=== PATIENT | female | born 1975 | race Caucasian/White ===

== ENCOUNTER 2016-06-06 09:27 | Emergency (ER) | payer SELFPAY ==
[2016-06-06 09:34] VITALS: BMI 39.0
[2016-06-06 09:36] VITALS: RESP 20
[2016-06-06] MEDS ORDERED: Lidocaine 1% Inj (20ml) ONE (10:30)
--- NOTE | 2016-06-06 10:47 | ED PDOC ---
Lower Extremity Pain/Injury Time Seen by Provider: 06/06/16 09:35 Chief Complaint (Nursing): Lower Extremity Problem/Injury History Per: Patient History/Exam Limitations: no limitations Onset/Duration Of Symptoms: Days Current Symptoms Are (Timing): Still Present Additional Complaint(s): 41-year-old female, PMHx includes Diabetes and Asthma, presents to the emergency department with complaints of pain and swelling to the first digit of her left foot, that she developed after getting a pedicure a few days ago. Pain gradually worsened, resulting in her coming to the ED for evaluation. Denies nausea/vomiting, fevers, discharge from area, blood, or any other associated symptoms. No other complaints at this time. Past Medical History Reviewed: Historical Data, Nursing Documentation, Vital Signs Vital Signs: Last Vital Signs Temp 98 F 06/06/16 09:34 Pulse 76 06/06/16 09:34 Resp 20 06/06/16 09:34 BP 122/75 06/06/16 09:34 Pulse Ox 100 06/06/16 09:34 - Medical History PMH: Asthma, Diabetes - Surgical History Surgical History: Cholecystectomy - Family History Family History: States: Unknown Family Hx, Diabetes - Social History Current smoker - smoking cessation education provided: No Alcohol: None Drugs: Denies - Home Medications Home Medications: Ambulatory Orders Medication Instructions Recorded metFORMIN [glucOPHAGE] 1 tab PO DAILY 05/22/16 Cephalexin [Keflex] 500 mg PO QID #28 capsule 06/06/16 - Allergies Allergies/Adverse Reactions: Allergies Allergy/AdvReac Type Severity Reaction Status Date / Time No Known Allergies Allergy Verified 05/18/16 09:06 Review of Systems ROS Statement: Except As Marked, All Systems Reviewed And Found Negative Constitutional: Negative for: Fever Gastrointestinal: Negative for: Nausea, Vomiting Musculoskeletal: Positive for: Foot Pain (left first toe ingrown nail) Skin: Negative for: Rash Physical Exam - Reviewed Nursing Documentation Reviewed: Yes Vital Signs Reviewed: Yes - Physical Exam Appears: Positive for: Non-toxic, No Acute Distress Skin: Positive for: Warm, Dry Eye Exam: Positive for: Normal appearance Neck: Positive for: Painless ROM Respiratory: Negative for: Accessory Muscle Use, Respiratory Distress Extremity: Positive for: Normal ROM, Tenderness (Left lower Ext: swelling and tenderness to palpation of medial aspect of left great toe. (+) fluctuance. appears to be consistent with ingrown toenail) Neurologic/Psych: Positive for: Alert, Oriented - ECG O2 Sat by Pulse Oximetry: 100 Medical Decision Making Medical Decision Making: Impression: Onychocryptosis Plan: * Ibuprofen * Podiatry consult * Reassess and Disposition 1135 Podiatry resident performed nail avulsion procedure, recommends to discharge patient with Rx for Antibx and outpatient f/u with podiatry. Pt agreeable with plan. All questions answred Scribe Attestation: Documented by Donnie Garcia acting as a scribe for Jim Harden MD. Provider Attestation: All medical record entries made by the Scribe were at my direction and personally dictated by me. I have reviewed the chart and agree that the record accurately reflects my personal performance of the history, physical exam, medical decision making, and the department course for this patient. I have also personally directed, reviewed, and agree with the discharge instructions and disposition. Disposition - Clinical Impression Clinical Impression: Nail avulsion, toe - Patient ED Disposition Is Patient to be Admitted: No Counseled Patient/Family Regarding: Studies Performed, Diagnosis, Need For Followup - Disposition Referrals: Podiatry Clinic [Outside] FAMILY PROVIDER,NO [Primary Care Provider] - Disposition: Routine/Home Disposition Time: 11:00 Condition: GOOD Additional Instructions: follow up in podiatry clinic on Monday. return to the ED with any worsening or concerning symptoms. Prescriptions: Cephalexin [Keflex] 500 mg PO QID #28 capsule Instructions: Nail Avulsion (ED) Print Language: FINNISH
[2016-06-06] MEDS ORDERED: Lidocaine 1% Inj (20ml) IJ ONE (11:38)
[2016-06-06 11:45] VITALS: BP 120/78; PULSE 78; TEMP 97.6
--- NOTE | 2016-06-06 14:56 | CP.PCM.CON ---
History of Present Illness - History of Present Illness History of Present Illness: 41 year old female patient with PMHx of DM and Asthma was seen at bedside this morning after request for podiatry consult. Patient presents with Right hallux infection secondary to ingrown toenail. Patient states that she first noticed pain and swelling 4 weeks ago from today. She stats that the swelling started after a visit to [facility]. Patient states that she has tried OTC medications for the inflammation which helped a little bit. Patient states that she has a lot of pain today and wishes to have Nail Avulsion done. Patient denies of any N /V/F/C or SOB today. Past Patient History - Past Medical History & Family History Past Medical History?: Yes - Past Social History Smoking Status: Never Smoked - CARDIAC Hx Hypertension: No - PULMONARY Hx Asthma: Yes - ENDOCRINE/METABOLIC Hx Diabetes Mellitus Type 2: Yes (diagnosed 2 weeks ago) Other/Comment: Not taking any diabetic medication - PSYCHIATRIC Hx Substance Use: No - SURGICAL HISTORY Hx Cholecystectomy: Yes - ANESTHESIA Hx Anesthesia: Yes Hx Anesthesia Reactions: No Meds Home Medications: Home Medication List Medication Instructions Recorded Confirmed Type Cephalexin [Keflex] 500 mg PO QID #28 capsule 06/06/16 Rx Allergies/Adverse Reactions: Allergies Allergy/AdvReac Type Severity Reaction Status Date / Time No Known Allergies Allergy Verified 05/18/16 09:06 Physical Exam - Constitutional Appears: Well, Non-toxic, No Acute Distress - Extremities Exam Additional comments: Bilateral lower extremity exam DERM: Erythema, slight purulent drainage noted to medial border of Right hallux nail border consistent with Paronychia. No mal-odor is noted. Erythema is localized to distal hallux and medial aspect. 1/5 of the medial border of the hallux was already cut off at the time of evaluation. VASC: Moderate swelling noted to medial aspect of Right hallux nail border noted. Palpable DP and PT noted 2/4 bilaterally. [employer] less than 3 seconds noted to all digits ORTHO: Pain on palpation to Right hallux, especially medial border. Decreased ROM to 1st MPJ and distal joints due to guarding NEURO: Gross sensation intact - Neurological Exam Neurological exam: Alert, Oriented x3 - Psychiatric Exam Psychiatric exam: Normal Affect, Normal Mood - Skin Skin Exam: Normal Color, Warm Results - Vital Signs Recent Vital Signs: Last Vital Signs Temp 97.6 F 06/06/16 11:44 Pulse 78 06/06/16 11:44 Resp 20 06/06/16 11:44 BP 120/78 06/06/16 11:44 Pulse Ox 98 06/06/16 11:44 Assessment & Plan - Assessment and Plan (Free Text) Assessment: 41 year old female patient with Right hallux Paronychia Plan: Patient was seen, evaluated and treated at bedside this morning labs and vitals reviewed discussed with attending Dr. Conner Verbal consent was obtained from the patient for the PNA procedure. 4cc of 1% Lidocaine plain was injected to right hallux. In sterile manner with sterile nail kit, Partial Nail Avulsion was done to medial 1/3 of the right hallux nail. Approximately 5mm x 4mm piece of nail was removed from the medial aspect of the right hallux nail. It appears someone tried to cut the medial border of nail, but left the piece inside. Patient tolerated the procedure well. Right hallux dressed with Bacitracin, DSD Patient to follow up with Podiatry clinic in 1 week Dressing instruction was well explained to the patient.
[2016-06-06 17:30] VITALS: O2SAT 100
== END 2016-06-06 11:45 | disposition home or self-care (01) ==
LOC: H.ER 09:27
DX: S91.209A Unspecified open wound of unspecified toe(s) with damage to nail, initial encounter (principal); W22.8XXA Striking against or struck by other objects, initial encounter; Y92.89 Other specified places as the place of occurrence of the external cause; E11.9 Type 2 diabetes mellitus without complications; Z79.84 Long term (current) use of oral hypoglycemic drugs

== ENCOUNTER 2017-12-08 20:45 | Emergency (ER) | payer SELFPAY ==
[2017-12-08 20:45] VITALS: BMI 39.0
[2017-12-08 20:58] VITALS: BP 116/75; PULSE 82; RESP 18; TEMP 98.7; O2SAT 98
--- NOTE | 2017-12-08 21:59 | ED PDOC ---
Lower Extremity Pain/Injury Time Seen by Provider: 12/08/17 20:59 Chief Complaint (Nursing): Lower Extremity Problem/Injury Chief Complaint (Provider): Pain, left great toe History Per: Patient History/Exam Limitations: no limitations Onset/Duration Of Symptoms: Days Current Symptoms Are (Timing): Still Present Additional Complaint(s): No trauma. Pt seen at [facility] for same. PT on Keflex and going warm soaks. Pt states it is not worse but does not feel it is better. Pt did not call podiatry yet to make an appointment. Past Medical History Reviewed: Historical Data, Nursing Documentation, Vital Signs Vital Signs: Last Vital Signs Temp 98.7 F 12/08/17 20:50 Pulse 82 12/08/17 20:50 Resp 18 12/08/17 20:50 BP 116/75 12/08/17 20:50 Pulse Ox 98 12/08/17 20:50 - Medical History PMH: Asthma, Diabetes Denies: HTN - Surgical History Surgical History: Cholecystectomy - Family History Family History: States: Diabetes - Immunization History Hx Tetanus Toxoid Vaccination: No Hx Influenza Vaccination: No Hx Pneumococcal Vaccination: No - Home Medications Home Medications: Ambulatory Orders Medication Instructions Recorded metFORMIN [glucOPHAGE] 1 tab PO DAILY 05/22/16 Cephalexin [cephalexin] 500 mg PO TID #15 cap 12/03/17 Ibuprofen [Motrin] 600 mg PO Q6 PRN #20 tab 12/03/17 - Allergies Allergies/Adverse Reactions: Allergies Allergy/AdvReac Type Severity Reaction Status Date / Time No Known Allergies Allergy Verified 12/03/17 12:56 Review of Systems ROS Statement: Except As Marked, All Systems Reviewed And Found Negative Constitutional: Negative for: Fever, Chills Cardiovascular: Negative for: Chest Pain Respiratory: Negative for: Cough Skin: Positive for: Other Physical Exam - Reviewed Nursing Documentation Reviewed: Yes Vital Signs Reviewed: Yes - Physical Exam Appears: Positive for: Well, Non-toxic, No Acute Distress Head Exam: Positive for: ATRAUMATIC, NORMAL INSPECTION, NORMOCEPHALIC Skin: Positive for: Normal Color, Warm, DRY Eye Exam: Positive for: Normal appearance ENT: Positive for: Normal ENT Inspection Neck: Positive for: Normal, Painless ROM Cardiovascular/Chest: Negative for: Bradycardia, Tachycardia Respiratory: Negative for: Accessory Muscle Use, Respiratory Distress Back: Positive for: Normal Inspection Extremity: Positive for: Other ((+) edema of the lateral nail fold of the great toe ). Negative for: Normal ROM Neurologic/Psych: Positive for: Alert, Oriented - ECG O2 Sat by Pulse Oximetry: 98 Disposition - Clinical Impression Clinical Impression: Ingrowing nail - Patient ED Disposition Is Patient to be Admitted: No - Disposition Referrals: Podiatry Clinic [Outside] Disposition: Routine/Home Disposition Time: 21:44 Condition: STABLE Instructions: Ingrown Toenail Forms: [facility] (Frisian) Print Language: PORTUGUESE
== END 2017-12-08 22:17 | disposition home or self-care (01) ==
LOC: H.ER 20:45
DX: L60.0 Ingrowing nail (principal); E11.9 Type 2 diabetes mellitus without complications; Z79.84 Long term (current) use of oral hypoglycemic drugs